=== PATIENT | female | born 1985 | race Asian ===

== ENCOUNTER 2023-12-15 07:13 | Emergency (ER) | payer MEDICAID, SELFPAY ==
[2023-12-15 08:17] VITALS: BP 107/76
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
[2023-12-15 10:52] LABS: Amphetamines Negative (Negative); Barbiturates Negative (Negative); Benzodiazepines Negative (Negative); Buprenorphine Negative (Negative); Cocaine Negative (Negative); Marijuana Positive (Negative); Methadone Negative (Negative); Methamphetamines Negative (Negative); Opiates Negative (Negative); Phencyclidine Negative (Negative); Tricyclic Antidepressants Negative (Negative)
--- NOTE | 2023-12-15 13:56 | W.PN.UPDATE ---
Update Note
Progress Note Update
Patient is presently pleasant and cooperative. However is in complete denial of everything that is alleged in the 302 petition. She feels she was falsely accused , denies attacking anybody or being destructive. She also despite evidence to the
contrary does not feel she has any mental health issues and is refusing treatment. both psychopharmacological as well as psychotherapeutic.
302 was upheld by telepsychiatry.
At this point given the severity of allegations on the petition I would still recommend inpatient treatment.
We will continue F/U.
[2023-12-15 14:49] LABS: HCG, Urine Qualitative Screen Negative
== END 2023-12-15 19:58 ==
LOC: EMR 07:13
PROVIDERS: EMERGENCY PHYSICIAN Emergency Medicine
DX: R45.6 Violent behavior (principal)
CPT/HCPCS: 99285; 80306; 81025

== ENCOUNTER 2024-11-20 02:31 | Emergency (ER) | payer MEDICAID, SELFPAY ==
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
--- NOTE | 2024-11-20 03:00 | EDRN ---
Patient asking to urinate, patient was placed on bedpan, entire time patient is cursing and yelling at staff, sample was sent for UDS on urine, 1:1 remains.
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
[2024-11-20 03:39] VITALS: BP 124/84
[2024-11-20 04:08] LABS: Amphetamines Negative (Negative); Barbiturates Negative (Negative); Benzodiazepines Negative (Negative); Buprenorphine Negative (Negative); Cocaine Negative (Negative); Marijuana Positive (Negative); Methadone Negative (Negative); Methamphetamines Negative (Negative); Opiates Negative (Negative); Phencyclidine Negative (Negative); Tricyclic Antidepressants Negative (Negative)
[2024-11-20] MEDS: HALDOL 5 MG IM (04:11)
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
--- NOTE | 2024-11-20 05:15 | EDRN ---
Security back to the room to assist in removing restraints from patient so police officers can place handcuffs on patient to assist out, patient understands that she is being discharged from the hospital and will be going to assisted in the police
custody.
== END 2024-11-20 06:18 ==
LOC: EMR 02:31
PROVIDERS: EMERGENCY PHYSICIAN Emergency Medicine
DX: R45.851 Suicidal ideations (principal); R45.6 Violent behavior
CPT/HCPCS: 99285; 80306